=== PATIENT | female | born 1970 | race African-American/Black ===

== ENCOUNTER → 2019-03-05 | Day surgery (SDC) | payer MEDICAID ==
[2019-03-04 09:28] LABS: Basophils # (auto) 0 uL; Basophils % (auto) 0.2 % (0.0-2.0); Eosinophils # (auto) 0 uL; Hemoglobin 13.4 g/dL (12.2-16.2); Nucleated Red Blood Cells % 0.1 %
[2019-03-04 09:30] LABS: Eosinophils % (auto) 0.3 % (0.0-7.0); Hematocrit 41.6 % (36.0-46.0); Lymphocytes % (auto) 28.1 % (10.0-50.0); Mean Corpuscular Hemoglobin 24.3 pg (28.0-32.0); Mean Corpuscular Hgb Conc. 32.3 g/dL (32.0-36.0); Mean Corpuscular Volume 75.2 fL (80.0-100.0); Monocytes # (auto) 0.4 uL; Monocytes % (auto) 6.3 % (0.0-12.0); Neutrophils # (auto) 4.6 uL; Neutrophils % (auto) 65.1 % (37.0-80.0); Platelet Count (auto) 231 10^3/uL (140-450); Red Blood Cells 5.53 10^6/uL (4.0-5.20); Red Cell Distribution Width 12.8 % (11.8-14.3); White Blood Cell 7.1 10^3/uL (4.4-10.8)
[2019-03-04 09:34] LABS: Urine Bacteria NONE SEEN /hpf (None Seen); Urine Blood Negative /uL (Negative); Urine WBC 1 /hpf (0 - 5)
[2019-03-04 09:54] LABS: Calcium 8.9 mg/dL (8.5-10.1); Potassium 4.3 mmol/L (3.5-5.1)
[2019-03-04 09:57] LABS: BUN/Creatinine Ratio 10.1; Bilirubin, Total 0.3 mg/dL (0.2-1.0); Total Protein 7.8 g/dL (6.4-8.2)
[2019-03-04 10:06] LABS: INR 1.01 (0.9-1.15); Partial Thromboplastin Time 26.5 sec (23.64-32.05)
[~2019-03-05] VITALS: Ht 160 cm; Wt 73.0 kg
[~2019-03-05] MED LIST: AMIT-256 PO; CETI1TAB36 PO; CHOL500021 PO; CYAN1TAB14 PO; CYCL1TAB18 PO; GABA-339 PO; HYDR200T36 PO; HYDR50TA32 PO; IBUP800T24 PO; LISI10TA6 PO; LURA80TA PO; MELO1TAB56 PO; MIDAZOLAM HCL 1MG/1ML-2 ML VIAL ONE; NIC21P TOP; ONDANSETRON HCL 4 MG/2 ML VIAL IV PRN; PROPOFOL 10 MG/ML 20 ML IV ONE; QUET200T44 PO; ROPIVACAINE 0.5% (5MG/ML) 20ML AMPULE IJ ONE; TRAM50TA2 PO; ceFAZolin 1GM/50ML 50 ML IV ONE; ePHEDrine SULFATE 50 MG/ML AMP IV PRN; fentaNYL CITRATE 100 MCG/2 ML VL IV PRN; fentaNYL CITRATE 100 MCG/2 ML VL ONE; hydrALAZINE HCL 20 MG/ML VL IV PRN; methylPREDNISolone ACETATE 80 MG/ML VL IM ONE
[2019-03-05 17:25] VITALS: BP 129/77
== END | disposition home or self-care (01) ==
LOC: SUR 13:36
PROVIDERS: ATTEND Podiatrist Foot & Ankle Surgery
DX: G57.52 Tarsal tunnel syndrome, left lower limb (principal); M19.90 Unspecified osteoarthritis, unspecified site; J45.909 Unspecified asthma, uncomplicated; I10 Essential (primary) hypertension; K21.9 Gastro-esophageal reflux disease without esophagitis; F20.9 Schizophrenia, unspecified; F17.210 Nicotine dependence, cigarettes, uncomplicated; Z98.891 History of uterine scar from previous surgery; Z98.890 Other specified postprocedural states; Z86.73 Personal history of transient ischemic attack (TIA), and cerebral infarction without residual deficits; Z79.899 Other long term (current) drug therapy
CPT/HCPCS: 28070; 36415; 80053; 81001; 84702; 85025; 85610; 85730; 88304; J0690; J1040; J2250; J2704; J2795; J3010; L3260